=== PATIENT | male | born 1990 | race Caucasian/White ===

== ENCOUNTER 2023-11-15 14:37 | Emergency (ER) | payer SELFPAY ==
[2023-11-16] MEDS: Lidocaine 1% with EPINEPHrine 1:100,000 20 ML MDV INJECT ONE (16:31)
== END 2023-11-15 16:52 ==
LOC: KA.ED 14:37
DX: S61.301A Unspecified open wound of left index finger with damage to nail, initial encounter (principal); W29.8XXA Contact with other powered hand tools and household machinery, initial encounter
CPT/HCPCS: 73140-F1; 99283; 99284

== ENCOUNTER 2024-04-06 13:48 | Emergency (ER) | payer MEDICAID ==
[2024-04-06] MEDS: Albuterol/Ipratropium 3.0-0.5 MG/3 ML Neb Soln NEB ONE (14:37)
[2024-04-06] MEDS: predniSONE 20 MG Tab PO ONE (14:47)
[2024-04-06] MEDS: Albuterol 8 GM Inhaler INH ONE (14:48)
[2024-04-06] MEDS: Azithromycin 250 MG Tab PO ONE (14:49)
[2024-04-06] MEDS: methylPREDNISolone Sodium Succinate 125 MG/2 ML SDV IM ONE (14:56)
[2024-04-06] MEDS: Albuterol 0.083% 2.5 MG/3 ML Neb Soln NEB ONE (15:08)
== END 2024-04-06 15:08 | disposition home or self-care (01) ==
LOC: KA.ED 13:48
DX: J40 Bronchitis, not specified as acute or chronic (principal); R91.8 Other nonspecific abnormal finding of lung field; F17.200 Nicotine dependence, unspecified, uncomplicated
CPT/HCPCS: 71046; 87428-QW; 94640; 96372; 99284; 99285; A9270-GY; J2919; J7512; J7613-GY; J7620-GY